=== PATIENT | female | born 1935 | race Caucasian/White ===

== ENCOUNTER → 2023-12-12 10:47 | Outpatient (REF) | payer OTHER, SELFPAY | LOC: RAD 10:47 | PROVIDERS: ATTENDING PHYSICIAN Family Medicine | DX: Z78.0 Asymptomatic menopausal state (principal) | CPT/HCPCS: 77080 ==

== ENCOUNTER → 2023-12-16 10:46 | Outpatient (REF) | payer OTHER, SELFPAY | LOC: DHCBC MAIN 10:46 | PROVIDERS: ATTENDING PHYSICIAN Internal Medicine Cardiovascular Disease; FAMILY PHYSICIAN Family Medicine | DX: I48.0 Paroxysmal atrial fibrillation (principal) | CPT/HCPCS: 93306 ==

== ENCOUNTER → 2024-02-11 11:54 | Outpatient (REF) | payer OTHER, SELFPAY | LOC: WDC 11:54 | PROVIDERS: ATTENDING PHYSICIAN Obstetrics & Gynecology Gynecology; FAMILY PHYSICIAN Family Medicine | DX: Z12.31 Encounter for screening mammogram for malignant neoplasm of breast (principal) | CPT/HCPCS: 77063; 77067 ==

== ENCOUNTER → 2024-07-14 11:35 | Outpatient (REF) | payer OTHER, SELFPAY | LOC: RAD 11:35 | PROVIDERS: ATTENDING PHYSICIAN Nurse Practitioner Adult Health | DX: M25.512 Pain in left shoulder (principal) | CPT/HCPCS: 73030 ==